=== PATIENT | female | born 1945 | race African-American/Black ===

== ENCOUNTER 2022-08-24 16:22 | Observation (INO) ==
[2022-08-24 17:19] LABS: Basophils # 0.1 10*3/uL (0.0-0.2); Basophils % 0.9 % (0.0-0.8); Eosinophils # 0.2 10*3/uL (0.0-0.87); Eosinophils % 2.7 % (0.00-10.9); Hematocrit 41.9 VOL% (35.7-47.0); Hemoglobin 13.3 GM/DL (12.0-16.0); Immature Granulocytes % 0.4 %; Immature Granulocytes Absolute 0.02 #; Lymphocytes # 1.4 10*3/uL (1.4-4.0); Lymphocytes % 25.8 % (21.3-54.2); Mean Corpuscular HGB Conc 31.7 GM/DL (32-36); Mean Corpuscular Volume 83.6 FL (87-102); Monocytes # 0.7 10*3/uL (0.11-0.8); Monocytes % 12.1 % (1.7-12.7); Neutrophils % 58.1 % (38.7-73.9); Platelet Count 232 T/CUMM (130-400); Red Blood Count 5.01 MC/CUMM (3.8-5.5); Red Cell Distribution Width 14.1 % (9.3-17.3); White Blood Count 5.5 T/CUMM (4-12)
[2022-08-24] MEDS ORDERED: ASPIRIN 325 MG TABLET PO STA (17:25)
[2022-08-24 17:43] LABS: Albumin 4.1 G/DL (3.4-5.0); Bilirubin,Total 1.2 MG/DL (0.20-1.00); Calcium 9.9 MG/DL (8.5-10.1); Osmolality,Calculated 282.3 MOS/KG (273-304); Potassium 3.5 MMOL/L (3.5-5.1)
[2022-08-24 18:30] LABS: Bilirubin,Urine Negative (Negative); Blood, Urine Negative (Negative); Glucose,Urine (UA) Negative (Negative); Ketones,Urine Negative (Negative); Mucus,Urine Occasional /LPF (Occasional); Nitrite,Urine Negative (Negative); Protein,Urine Negative (Negative); RBC,Urine 5 /HPF (0-4); Squamous Epithelial Cell,Urine Occasional /HPF (0-10); Urine Appearance CLEAR (Clear); Urine Color Yellow (Yellow); Urine Specific Gravity 1.021 (1.001-1.035)
[2022-08-24] MEDS ORDERED: SIMETHICONE CHEW 125 MG TABLET PO PRN (19:59)
[2022-08-24] MEDS ORDERED: ONDANSETRON 4 MG/2 ML VIAL IV PRN (19:59)
[2022-08-24] MEDS ORDERED: hydrALAZINE 20 MG/1 ML VIAL IV PRN (19:59)
[2022-08-24] MEDS ORDERED: ACETAMINOPHEN 325 MG TABLET PO PRN (19:59)
[2022-08-24] MEDS ORDERED: BISACODYL 5 MG TABLET PO PRN (19:59)
[2022-08-24] MEDS ORDERED: FUROSEMIDE 40 MG TABLET PO PRN (20:02)
[2022-08-24] MEDS ORDERED: NITROGLYCERIN SL 0.4 MG TABLET SL PRN (20:02)
[2022-08-24] MEDS ORDERED: COLCHICINE 0.6 MG CAPSULE PO PRN (20:02)
[2022-08-24] MEDS ORDERED: ALUM/MAG/SIMETH/LIDO VISC 1:1 30 ML BOTTLE PO ONE (20:04)
[2022-08-24] MEDS: busPIRone 10 MG TABLET PO SCH (20:58)
[2022-08-24] MEDS: carvediloL 3.125 MG TABLET PO SCH (20:58)
[2022-08-24] MEDS ORDERED: ENOXAPARIN 40 MG/0.4 ML SYRINGE SUBCUT SCH (21:00)
[2022-08-24] MEDS: GABAPENTIN 300 MG CAPSULE PO SCH (21:03)
[2022-08-24] MEDS ORDERED: oxyCODONE/ACETAMINOPHEN 5-325 MG TABLET PO PRN (22:56)
[2022-08-25 04:20] LABS: Basophils % 0.8 % (0.0-0.8); Eosinophils # 0.2 10*3/uL (0.0-0.87); Eosinophils % 4.6 % (0.00-10.9); Hematocrit 36.3 VOL% (35.7-47.0); Hemoglobin 11.3 GM/DL (12.0-16.0); Immature Granulocytes % 0.2 %; Immature Granulocytes Absolute 0.01 #; Lymphocytes # 2.2 10*3/uL (1.4-4.0); Lymphocytes % 41.6 % (21.3-54.2); Mean Corpuscular HGB Conc 31.1 GM/DL (32-36); Mean Corpuscular Volume 83.4 FL (87-102); Mean Platelet Volume 9.4 FL (9.6-12.0); Monocytes # 0.7 10*3/uL (0.11-0.8); Monocytes % 13.3 % (1.7-12.7); Neutrophils % 39.5 % (38.7-73.9); Platelet Count 236 T/CUMM (130-400); Red Blood Count 4.35 MC/CUMM (3.8-5.5); Red Cell Distribution Width 14.1 % (9.3-17.3); White Blood Count 5.2 T/CUMM (4-12)
[2022-08-25 04:48] LABS: Albumin 3.2 G/DL (3.4-5.0); Bilirubin,Total 0.6 MG/DL (0.20-1.00); Calcium 8.6 MG/DL (8.5-10.1); Osmolality,Calculated 282.1 MOS/KG (273-304); Potassium 3.2 MMOL/L (3.5-5.1); Risk Ratio 1.87; Thyroid Stimulating Hormone 1.06 uIU/ml (0.358-3.74); Total Protein 6.7 G/DL (6.4-8.2)
[2022-08-25] MEDS ORDERED: POTASSIUM CHLORIDE RIDER 10 MEQ/100 ML PREMIX IV PRN (05:54)
[2022-08-25] MEDS: carvediloL 3.125 MG TABLET PO SCH (08:20)
[2022-08-25] MEDS ORDERED: POTASSIUM CHLORIDE 20 MEQ TABLET PO ONE (08:42)
[2022-08-25] MEDS: busPIRone 10 MG TABLET PO SCH (08:50)
[2022-08-25] MEDS: GABAPENTIN 300 MG CAPSULE PO SCH (08:50)
[2022-08-25] MEDS ORDERED: MONTELUKAST 10 MG TABLET PO SCH (09:00)
[2022-08-25] MEDS ORDERED: CLOPIDOGREL 75 MG TABLET PO SCH (09:00)
[2022-08-25] MEDS ORDERED: amLODIPine 10 MG TABLET PO SCH (09:00)
[2022-08-25] MEDS ORDERED: OXYBUTYNIN XL 5 MG TABLET PO SCH (09:00)
[2022-08-25] MEDS ORDERED: ASPIRIN CHEW 81 MG TABLET PO SCH (09:00)
[2022-08-25] MEDS ORDERED: PANTOPRAZOLE 40 MG TABLET PO SCH (09:00)
[2022-08-25] MEDS ORDERED: ATORVASTATIN 80 MG TABLET PO SCH (09:00)
[2022-08-25] MEDS ORDERED: MELOXICAM 7.5 MG TABLET PO SCH (09:00)
[2022-08-25] MEDS ORDERED: allopurinoL 100 MG TABLET PO SCH (09:00)
[2022-08-25 14:02] VITALS: BP 127/56
== END 2022-08-25 13:58 | disposition home or self-care (01) ==
LOC: N.EDINP 16:22 → N.ED 16:22 → N.EDINP 08-25 14:02
PROVIDERS: ADMIT Internal Medicine; ATTEND Internal Medicine